=== PATIENT | female | born 1990 | race Caucasian/White ===

== ENCOUNTER 2016-10-21 21:00 | Emergency (ER) | payer OTHER ==
[~2016-10-21] VITALS: Ht 157.5 cm; Wt 107.0 kg
[2016-10-21 21:25] VITALS: Ht 157.5 cm; Wt 107.0 kg
[2016-10-21] MEDS ORDERED: AZIT250T94 PO (21:40)
[2016-10-21] MEDS ORDERED: IBUP-1542 PO (21:40)
[2016-10-21] MEDS ORDERED: CETI10CA PO (21:40)
[2016-10-21] MEDS ORDERED: ALBU8.5H3 INH (21:40)
[2016-10-21] MEDS ORDERED: FLUT9.9S NASAL (21:40)
[2016-10-21] MEDS ORDERED: BENZ100C70 PO (21:40)
--- NOTE | 2016-10-21 21:52 | ERD ---
ER Documentation Chief Complaint Date/Time DATE: 10/21/16 TIME: 21:48 Chief Complaint cough x 5 days, headache,fever, body ache and nasal congestion HPI 26-year-old female presents to emergency department for complaints of cough, on and off wheezing had a fever and bodyaches nasal congestion and runny nose for 5 days. Patient has been having dry cough, with on and off wheezing. Patient denies any shortness of breath. Patient took bcrr-jmc-suxocel Robitussin to open symptoms with only mild relief. Patient denies any sick contacts. Patient denies any chest pain or palpitations. Patient denies ear pain or sore throat. ROS All systems reviewed and are negative except as per history of present illness. Medications Home Meds Active Scripts Benzonatate* (Tessalon Perle*) 100 Mg Capsule, 100 MG PO Q8H Y for COUGH, #30 CAP Prov:MIAN CAMARENA NP 10/21/16 Cetirizine Hcl* (Zyrtec*) 10 Mg Capsule, 10 MG PO DAILY, #30 TAB.CHEW Prov:MIAN CAMARENA NP 10/21/16 Ibuprofen* (Motrin*) 600 Mg Tab, 600 MG PO Q6H Y for PAIN AND OR ELEVATED TEMP, #30 TAB Prov:MIAN CAMARENA NP 10/21/16 Fluticasone Propionate (Flonase Allergy Relief) 9.9 Ml [place].susp, 1 SPRAY NASAL BID, #1 BOTTLE TO EACH NOSTRIL Prov:MIAN CAMARENA NP 10/21/16 Azithromycin* (Zithromax*) 250 Mg Tablet, 250 MG PO .ZPACK DIRECTED, #6 TAB TAKE 500 MG (2 TABS) THE FIRST DAY THEN 250 MG (1 TAB) DAYS 2-5 Prov:MIAN CAMARENA NP 10/21/16 Albuterol Sulfate* (Proair HFA*) 8.5 Gm Hfa.aer.ad, 2 PUFF INH Q4H Y for WHEEZING AND SOB, #1 INHALER Prov:MIAN CAMARENA NP 10/21/16 Allergies Allergies: Coded Allergies: No Known Allergy (Unverified , 10/21/16) PMhx/Soc Medical and Surgical Hx: pt denies Medical Hx, pt denies Surgical Hx FmHx Family History: No coronary disease, No diabetes, No other Physical Exam Vitals Vital Signs Date Time Temp Pulse Resp B/P Pulse Ox O2 Delivery O2 Flow Rate FiO2 10/21/16 21:25 99.7 104 20 140/94 100 Physical Exam GENERAL: The patient is well developed and appropriate for usual state of health, in no apparent distress. HEENT: Atraumatic. Ears: Normal tympanic membrane, no erythema or bulging. No ear canal swelling. No ear discharge. Nose: Erythematous nasal turbinates with clear nasal discharge. Throat: oropharynx erythematous with postnasal drip. No tonsillar swelling or tonsillar exudates. No lymphadenopathy. CHEST: Clear to auscultation bilaterally. There are no rales, wheezes or rhonchi. HEART: Regular rate and rhythm. No murmurs, clicks, rubs or gallops. No S3 or S4. ABDOMEN: Soft, nontender and nondistended. Good bowel sounds. No rebound or guarding. No gross peritonitis. No gross organomegaly or masses. No Atwood sign or McBurney point tenderness. BACK: No midline or flank tenderness. EXTREMITIES: Equal pulses bilaterally. There is no peripheral clubbing, cyanosis or edema. No focal swelling or erythema. Full range of motion. Grossly neurovascularly intact. NEURO: Alert and oriented. Cranial nerves 2-12 intact. Motor strength in all 4 extremities with 5/5 strength. Sensation grossly intact. Normal speech and gait. SKIN: There is no apparent rash or petechia. The skin is warm and dry. HEMATOLOGIC AND LYMPHATIC: There is no evidence of excessive bruising or lymphedema. No gross cervical, axillary, or inguinal lymphadenopathy. Procedures/MDM Medical Decision Making: Patient symptoms are most likely consistent with acute bronchitis, which viral in origin. There is low suspicion for Pneumonia at this time since patients lungs sounds are clear, patient O2 saturation is normal and patient doesnt show any respiratory distress. Radiology exam is not indicated at this time. There is low suspicion for other cardiopulmonary emergencies at this time such as CHF, Pulmonary Embolism, Pneumothorax, or any other cardiopulmonary emergencies at this time. There is low suspicion for sepsis. Patient appears well and is hemodynamically stable. Fever is controlled with medicines. Disposition: Home. Condition: Stable Prescriptions: Guaifenesin DM and Zyrtec ibuprofen Flonase azithromycin Instructions: Patient is advised to take medications as prescribed. Patient is advised to rest. Patient advised to increase fluid intake, do humidifier at home and if possible, do salt water gargles. Patient is advised that if symptoms are worse, shortness of breath, uncontrolled fever, stridor, vomiting, worst signs and symptoms to return to emergency department immediately. Otherwise, patient is advised to follow up with primary doctor in 5-7 days. Departure Diagnosis: Primary Impression: Acute bronchitis Bronchitis organism: unspecified organism Qualified Code: J20.9 - Acute bronchitis, unspecified organism Condition: Stable Patient Instructions: Bronchitis, Antiobiotic Treatment (Adult) MIAN CAMARENA NP Oct 21, 2016 21:52
== END 2016-10-21 21:42 | disposition home or self-care (01) ==
LOC: E/R 21:00
DX: J20.9 Acute bronchitis, unspecified (principal)
CPT/HCPCS: 99284

== ENCOUNTER 2018-08-13 13:29 | Emergency (ER) | payer OTHER ==
[~2018-08-13] VITALS: Ht 160 cm; Wt 110.4 kg
[~2018-08-13 13:29] MED LIST: ACET500C5 PO; ALBU8.5H8 INH; AZIT250T PO; BENZ-6 PO; CETI10CA PO; FLUT9.9S NASAL; IBUP-1542 PO; MECL12.574 PO; METO10TA92 PO; NAPR-985 PO
[2018-08-13 13:32] VITALS: BP 135/76; PULSE 105; RESP 20; Ht 160 cm; Wt 110.4 kg
[2018-08-13] MEDS ORDERED: CEPH-443 PO (16:09)
--- NOTE | 2018-08-13 16:11 | ERD ---
ER Documentation Chief Complaint Chief Complaint abd cramping since this AM; has ST on zpak already; 3 mos preg HPI 28-year-old female approximately 12 weeks presents with complaints of abdominal cramping since this morning. Patient is currently taking azithromycin for tonsillitis. She denies dysuria, hematuria, vaginal spotting, bleeding or clotting. She rates pain as a mild cramping pain with no radiation and no flank pain. Patient expresses concern due to and wants to ensure child okay. She has not taken anything for pain at this time. Denies chronic medical conditions. 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 ROS All systems reviewed and are negative except as per history of present illness. Medications Home Meds Active Scripts Cephalexin* (Keflex*) 500 Mg Capsule, 500 MG PO BID for 5 Days, CAP Prov:OLEGARIO BRUNO PA-C 08/13/18 Meclizine Hcl* (Antivert*) 12.5 Mg Tab, 12.5 MG PO Q6H PRN for DIZZINESS, #20 TAB Prov:LYNN COLÓN 05/23/18 Acetaminophen* (Tylophen*) 500 Mg Capsule, 1 CAP PO Q6H PRN for PAIN AND OR ELEVATED TEMP, #20 CAP Prov:PASLYNN DEL ANGEL 05/23/18 Metoclopramide* (Reglan*) 10 Mg Tablet, 10 MG PO Q6 PRN for NAUSEA AND/OR VOMITING, #20 TAB Prov:LYNN COLÓN F 05/23/18 Naproxen* (Naprosyn*) 500 Mg Tablet, 500 MG PO BID PRN for PAIN AND/OR INFLAMMATION, #30 TAB Prov:LYNN COLÓN 05/23/18 Benzonatate* (Tessalon Perle*) 100 Mg Capsule, 100 MG PO Q8H PRN for COUGH, #30 CAP Prov:MIAN CAMARENA NP 10/21/16 Cetirizine Hcl* (Zyrtec*) 10 Mg Capsule, 10 MG PO DAILY, #30 TAB.CHEW Prov:MIAN CAMARENA NP 10/21/16 Ibuprofen* (Motrin*) 600 Mg Tab, 600 MG PO Q6H PRN for PAIN AND OR ELEVATED TEMP, #30 TAB Prov:MIAN CAMARENA NP 10/21/16 Fluticasone Propionate (Flonase Allergy Relief) 9.9 Ml [place].susp, 1 SPRAY NASAL BID, #1 BOTTLE TO EACH NOSTRIL Prov:MIAN CAMARENA NP 10/21/16 Azithromycin* (Zithromax*) 250 Mg Tablet, 250 MG PO .ZPACK DIRECTED, #6 TAB TAKE 500 MG (2 TABS) THE FIRST DAY THEN 250 MG (1 TAB) DAYS 2-5 Prov:MIAN CAMARENA NP 10/21/16 Albuterol Sulfate* (Proair HFA*) 8.5 Gm Hfa.aer.ad, 2 PUFF INH Q4H PRN for WHEEZING AND SOB, #1 INHALER Prov:MIAN CAMARENA NP 10/21/16 Allergies Allergies: Coded Allergies: No Known Allergy (Unverified , 10/21/16) PMhx/Soc History of Surgery: Yes (LASIK,BROKEN MIDDLE FINGER ) Hx Alcohol Use: No Hx Substance Use: No Hx Tobacco Use: No Smoking Status: Never smoker Physical Exam Vitals Vital Signs Date Temp Pulse Resp B/P (MAP) Pulse Ox O2 O2 Flow FiO2 Time Delivery Rate 08/13/18 98.0 105 20 135/76 98 13:32 (95) Physical Exam Const: No acute distress Head: Atraumatic, normocephalic. Eyes: Normal Conjunctiva ENT: Normal External Ears, Nose and Mouth. Moist mucous membranes. Neck: Full range of motion. No meningismus. Resp: Clear to auscultation bilaterally. No wheezes, rales, rhonchi. Cardio: Regular rate and rhythm, no murmurs Abd: Soft, non tender, non distended. Normal bowel sounds. No right lower quadrant tenderness. Negative Atwood sign. No reproducible pelvic pain with palpation. Palpable fundus located approximately 3 cm below the umbilicus. Skin: No petechiae or rashes Back: No midline or flank tenderness Ext: No cyanosis, or edema Neur: Awake and alert Psych: Normal Mood and Affect Result Diagram: 08/13/18 1447 08/13/18 1447 Results 24 hrs Laboratory Tests Test 08/13/18 14:46 08/13/18 14:47 POC Beta HCG, Qualitative POSITIVE White Blood Count 10.6 10^3/ul Red Blood Count 4.12 10^6/ul Hemoglobin 12.2 g/dl Hematocrit 36.5 % Mean Corpuscular Volume 88.6 fl Mean Corpuscular Hemoglobin 29.6 pg Mean Corpuscular Hemoglobin Concent 33.4 g/dl Red Cell Distribution Width 13.4 % Platelet Count 335 10^3/UL Mean Platelet Volume 9.4 fl Immature Granulocytes % 0.600 % Neutrophils % 63.9 % Lymphocytes % 26.1 % Monocytes % 6.4 % Eosinophils % 2.5 % Basophils % 0.5 % Nucleated Red Blood Cells % 0.0 /100WBC Immature Granulocytes # 0.060 10^3/ul Neutrophils # 6.8 10^3/ul Lymphocytes # 2.8 10^3/ul Monocytes # 0.7 10^3/ul Eosinophils # 0.3 10^3/ul Basophils # 0.1 10^3/ul Nucleated Red Blood Cells # 0.0 10^3/ul Urine Color YELLOW Urine Clarity SLIGHTLY CLOUDY Urine pH 6.0 Urine Specific [place] 1.019 Urine Ketones 1+ mg/dL Urine Nitrite NEGATIVE mg/dL Urine Bilirubin NEGATIVE mg/dL Urine Urobilinogen NEGATIVE mg/dL Urine Leukocyte Esterase TRACE Kul[place]inder/ul Urine Microscopic RBC 5 /HPF Urine Microscopic WBC 3 /HPF Urine Squamous Epithelial Cells MODERATE /HPF Urine Mucus FEW /HPF Urine Hemoglobin NEGATIVE mg/dL Urine Glucose NEGATIVE mg/dL Urine Total Protein NEGATIVE mg/dl Sodium Level 135 mmol/L Potassium Level 4.0 mmol/L Chloride Level 105 mmol/L Carbon Dioxide Level 23 mmol/L Anion Gap 7 Blood Urea Nitrogen 5 mg/dl Creatinine 0.48 mg/dl Est Glomerular Filtrat Rate mL/min > 60 mL/min Glucose Level 87 mg/dl Calcium Level 9.6 mg/dl Total Bilirubin 0.3 mg/dl Direct Bilirubin 0.00 mg/dl Indirect Bilirubin 0.3 mg/dl Aspartate Amino Transf (AST/SGOT) 20 IU/L Alanine Aminotransferase (ALT/SGPT) 12 IU/L Alkaline Phosphatase 97 IU/L Total Protein 8.0 g/dl Albumin 4.2 g/dl Globulin 3.80 g/dl Albumin/Globulin Ratio 1.10 Beta HCG, Quantitative 05026.0 mIU/ml Procedures/MDM PROCEDURE: US OB. CLINICAL INDICATION: Pelvic pain TECHNIQUE: Transabdominal views of the pelvis are available for review. COMPARISON: No prior studies are available for comparison. FINDINGS: There is a single intrauterine gestation with the crown-rump length measuring 6.0 cm, corresponding to a gestational age of 12 weeks and 4 days. The heart rate is noted at 161 bpm. The right ovary was not seen. The left ovary measures 3.3 x 2.6 x 2.5 cm. There is a 1.9 cm hemorrhagic corpus luteum cyst in the left ovary. There is Doppler flow in the left ovary. There is no free fluid. RPTAT: AA IMPRESSION: Single live intrauterine with an estimated gestational age of 12 weeks and 4 days, based on ultrasound measurements. AALIYAH based on ultrasound measurements is 02/21/19. Small corpus luteum cyst in the left ovary. Right ovary not visualized. MDM: This is an otherwise healthy 28-year-old female presenting with complaint of pelvic pain since this morning. Patient afebrile, slightly tachycardic, remainder of vital signs unremarkable, patient in no acute distress. Labs performed all within normal limits, OB ultrasound showed live intrauterine approximately 12 weeks and 4 days in gestational age, heart rate 161. Urinalysis positive for leukocytes. Physical exam, clinical presentation, labs and imaging consistent with urinary tract infection. Very low suspicion for pyelonephritis, nephrolithiasis, ectopic , or demise. Patient stable for discharge at this time with prescription for Keflex. Advised for strict follow-up with SOFTWARE DEVELOPMENT PROJECT MANAGER within the next 1-2 days. Counseled regarding ED return precautions. Patient expressed verbal understanding and agreement to treatment plan. All questions addressed and answered. Departure Diagnosis: Primary Impression: Pelvic pain during Additional Impression: Urinary tract infection Urinary tract infection type: site unspecified Hematuria presence: without hematuria Qualified Codes: N39.0 - Urinary tract infection, site not specified Condition: Stable Patient Instructions: Understanding Urinary Tract Infections (UTIs) OLEGARIO BRUNO PA-C Aug 13, 2018 16:11
== END 2018-08-13 16:28 | disposition home or self-care (01) ==
LOC: FTE 13:29
DX: O26.891 Other specified pregnancy related conditions, first trimester (principal); R10.2 Pelvic and perineal pain; O23.41 Unspecified infection of urinary tract in pregnancy, first trimester; Z3A.12 12 weeks gestation of pregnancy
CPT/HCPCS: 36415; 76805; 80053; 81001; 81025; 84702; 85025; Z7502

== ENCOUNTER 2018-09-23 20:42 | Emergency (ER) | payer SELFPAY ==
[~2018-09-23] VITALS: Ht 144.8 cm; Wt 120.0 kg
[~2018-09-23 20:42] MED LIST changes: +CEPH-443 PO
[2018-09-23 21:20] VITALS: BP 150/83; PULSE 96; RESP 18; Ht 144.8 cm; Wt 120.0 kg
== END 2018-09-23 23:25 | disposition left against medical advice (07) ==
LOC: FTE 20:42
DX: Z53.21 Procedure and treatment not carried out due to patient leaving prior to being seen by health care provider (principal)